=== PATIENT | female | born 1950 | race Hispanic/Latino ===

== ENCOUNTER → 2018-01-27 | Outpatient (CLI) | payer OTHER ==
[~2018-01-27] MED LIST: ASPI-1197 PO; CLOP75TA32 PO; ESOM40CA PO; METH25VI67 IJ; METO50TA18 PO; RANO500T2 PO; TRAM50TA4 PO; VALS1TAB75 PO
== END | disposition home or self-care (01) ==
LOC: RAH 12:31
PROVIDERS: ATTEND Family Medicine
DX: Z12.31 Encounter for screening mammogram for malignant neoplasm of breast (principal)
CPT/HCPCS: 77067

== ENCOUNTER → 2018-07-17 | Outpatient (CLI) | payer OTHER ==
[~2018-07-17] VITALS: Ht 149.9 cm; Wt 51.7 kg
[~2018-07-17] MED LIST changes: +REGADENOSON 0.4 MG/5 ML PF SYG IVP SCH
== END | disposition home or self-care (01) ==
LOC: SHCH 08:07
PROVIDERS: ATTEND Internal Medicine Cardiovascular Disease
DX: I25.119 Atherosclerotic heart disease of native coronary artery with unspecified angina pectoris (principal); E78.5 Hyperlipidemia, unspecified
CPT/HCPCS: 78452; 93017; 93306; 96374; A9500 ×2; J2785

== ENCOUNTER 2018-08-07 05:30 | Observation (INO) | payer OTHER ==
[2018-08-05 10:25] VITALS: BP 110/57
[2018-08-05 10:28] LABS: BASOPHILS % (AUTO) 0.4 % (0.0-5.0); EOSINOPHILS % (AUTO) 1.2 % (0.0-8.0); HEMATOCRIT 35.8 % (36-48); LYMPHOCYTES % (AUTO) 42.5 % (21.0-51.0); MEAN CORPUSCULAR HEMOGLOBIN 31.5 pg (27.0-33.0); MEAN CORPUSCULAR HGB CONC 33.8 g/dL (32.0-36.0); MEAN CORPUSCULAR VOLUME 93.3 fL (79-99); MONOCYTES % (AUTO) 8.7 % (3.0-13.0); NEUTROPHILS % (AUTO) 47.2 % (40.0-77.0); PLATELET COUNT (AUTO) 274 K/uL (130-400); RED BLOOD CELL COUNT(AUTO) 3.84 MIL/uL (4.00-5.50); RED CELL DISTRIBUTION WIDTH 12.9 % (11.0-15.5); WHITE BLOOD COUNT (AUTO) 5.9 K/uL (4.8-10.8)
[2018-08-05 10:33] LABS: CREATININE 0.9 mg/dL (0.5-1.5); POTASSIUM 4.6 mmol/L (3.5-5.1)
[2018-08-05 10:43] LABS: INR 0.95 (0.85-1.15); PARTIAL THROMBOPLASTIN TIME 26.8 SEC (26.3-35.5)
[2018-08-05 10:47] LABS: APPEARANCE,URINE Clear (CLEAR); BILIRUBIN,URINE Negative (NEGATIVE); COLOR,URINE Yellow (YELLOW); GLUCOSE, URINE (UA) Negative (NEGATIVE); KETONES,URINE Negative (NEGATIVE); LEUKOCYTE ESTERASE ,URINE Moderate (NEGATIVE); NITRATE,URINE Negative (NEGATIVE); OCCULT BLOOD,URINE Negative (NEGATIVE); PROTEIN,URINE Negative (NEGATIVE)
[2018-08-05 11:08] LABS: BACTERIA,URINE Rare /HPF (None Seen); RBC,URINE 0-1 /HPF (0-1); SQUAMOUS EPITHELIAL CELL,UR Rare /HPF (0-2); YEAST,URINE BUDDING Few /HPF (None Seen)
[~2018-08-07] VITALS: Ht 152.4 cm; Wt 51.9 kg
[2018-08-07] VITALS (31 sets, daily range): BP systolic 104–155; BP diastolic 53–100
[~2018-08-07 05:30] MED LIST changes: +ATOR10TA69 PO; +LOSA1TAB42 PO; +METH2.5T6 PO; -METH25VI67 IJ; -REGADENOSON 0.4 MG/5 ML PF SYG IVP SCH; -VALS1TAB75 PO
[2018-08-07] MEDS ORDERED: SODIUM CHLORIDE 0.9% 1000ML 1,000 ML IV ONE (06:16)
[2018-08-07] MEDS ORDERED: NITR0.4T SL (06:59)
[2018-08-07] MEDS ORDERED: IOHEXOL-350 50ML VIAL IV ONE (07:57)
[2018-08-07] MEDS ORDERED: IOHEXOL 350 MG/ML 100ML INFUS..BTL IV ONE (07:57)
[2018-08-07] MEDS ORDERED: HEPARIN SODIUM 1000UNIT/ML 10ML VIAL ONE (07:57)
[2018-08-07] MEDS ORDERED: LIDOCAINE HCL 2% 20ML ONE (07:57)
[2018-08-07] MEDS ORDERED: IOHEXOL-350 75 ML VIAL IV ONE ×2 (08:44→09:12)
[2018-08-07] MEDS ORDERED: ASPIRIN 325MG EC TAB 325 MG TABLET.DR PO ONE (09:33)
[2018-08-07] MEDS ORDERED: CLOPIDOGREL BISULFATE 300 MG TAB ONE (09:33)
[2018-08-07] MEDS ORDERED: NITROGLYCERIN 4.1 GM SPRAY TL ONE (09:34)
[2018-08-07] MEDS ORDERED: ONDANSETRON HCL 4 MG/2 ML VIAL IVP PRN (10:00)
[2018-08-07] MEDS ORDERED: TRAMADOL HCL 50 MG TABLET PO PRN (10:00)
[2018-08-07] MEDS ORDERED: NITROGLYCERIN 0.4 MG SL TAB SL PRN (10:00)
[2018-08-07] MEDS ORDERED: ONDANSETRON HCL 4 MG/2 ML VIAL IVP SCH (10:00)
[2018-08-07] MEDS ORDERED: MORPHINE SULFATE 5 MG/ML VIAL IVP SCH (10:00)
[2018-08-07] MEDS: PANTOPRAZOLE SODIUM 40 MG TABLET.DR PO SCH (11:49)
[2018-08-07] MEDS: ACETAMINOPHEN 325 MG TAB PO PRN (15:37)
[2018-08-07] MEDS ORDERED: MORPHINE SULFATE 5 MG/ML VIAL ONE (16:38)
[2018-08-07] MEDS ORDERED: HYDROCHLOROTHIAZIDE 25 MG TABLET PO SCH (21:00)
[2018-08-07] MEDS ORDERED: ATORVASTATIN CALCIUM 10 MG TABLET PO SCH (21:00)
[2018-08-07] MEDS ORDERED: LOSARTAN 100 MG TABLET PO SCH (21:00)
[2018-08-07] MEDS ORDERED: ASPIRIN 81MG TAB.CHEW PO SCH (21:00)
[2018-08-07] MEDS: METOPROLOL TARTRATE 50 MG TAB PO SCH (21:41)
[2018-08-07] MEDS: RANOLAZINE 500 MG TAB.SR.12H PO SCH (21:42)
[2018-08-08 03:46] LABS: HEMATOCRIT 32.4 % (36-48); MEAN CORPUSCULAR HEMOGLOBIN 31.9 pg (27.0-33.0); MEAN CORPUSCULAR HGB CONC 34.7 g/dL (32.0-36.0); MEAN CORPUSCULAR VOLUME 92.1 fL (79-99); NUCLEATED RED BLOOD CELLS 0.1 % (0.0-0.19); PLATELET COUNT (AUTO) 256 K/uL (130-400); RED BLOOD CELL COUNT(AUTO) 3.52 MIL/uL (4.00-5.50); RED CELL DISTRIBUTION WIDTH 13.7 % (11.0-15.5); WHITE BLOOD COUNT (AUTO) 7.6 K/uL (4.8-10.8)
[2018-08-08 03:57] LABS: CREATININE 1.1 mg/dL (0.5-1.5); POTASSIUM 3.8 mmol/L (3.5-5.1)
[2018-08-08 04:00] VITALS: BP 112/53
[2018-08-08 07:51] VITALS: BP 112/58
[2018-08-08] MEDS: METOPROLOL TARTRATE 50 MG TAB PO SCH (08:42)
[2018-08-08] MEDS: RANOLAZINE 500 MG TAB.SR.12H PO SCH (08:42)
[2018-08-08] MEDS: PANTOPRAZOLE SODIUM 40 MG TABLET.DR PO SCH (08:42)
[2018-08-08] MEDS ORDERED: CLOPIDOGREL BISULFATE 75 MG TAB PO SCH (09:00)
[2018-08-08 11:07] VITALS: BP 106/64
[2018-08-08] MEDS: ACETAMINOPHEN 325 MG TAB PO PRN (11:16)
[2018-08-13] MEDS ORDERED: METHOTREXATE SODIUM 2.5 MG TABLET PO SCH (09:00)
== END 2018-08-08 13:00 | disposition home or self-care (01) ==
LOC: DAH 05:30 → DAHIP 05:31 → 2AH 10:42
PROVIDERS: ADMIT Internal Medicine Pulmonary Disease; ATTEND Internal Medicine Pulmonary Disease
DX: I25.119 Atherosclerotic heart disease of native coronary artery with unspecified angina pectoris (principal); E78.5 Hyperlipidemia, unspecified; I10 Essential (primary) hypertension; M06.9 Rheumatoid arthritis, unspecified; Z82.49 Family history of ischemic heart disease and other diseases of the circulatory system; Z96.649 Presence of unspecified artificial hip joint; Z79.899 Other long term (current) drug therapy; Z95.5 Presence of coronary angioplasty implant and graft; Z79.01 Long term (current) use of anticoagulants
CPT/HCPCS: 36415 ×3; 71045; 80048 ×2; 81001; 85025; 85027; 85610; 85730 ×3; 93005; 93458; 96374; 96375; C1769; C1874; C1887 ×6; C1894; C9600; G0378 ×31; J1644 ×3; J2270; J2405; J3490; J7030; Q9965; Q9967 ×4

== ENCOUNTER 2019-06-14 22:39 | Observation (INO) | payer OTHER ==
[~2019-06-14] VITALS: Ht 149.9 cm; Wt 51.2 kg
[~2019-06-14 22:39] MED LIST changes: +NITR0.4T SL
[2019-06-14 23:13] LABS: BASOPHILS % (AUTO) 0.7 % (0.0-5.0); EOSINOPHILS % (AUTO) 0.9 % (0.0-8.0); HEMATOCRIT 32.5 % (36-48); LYMPHOCYTES % (AUTO) 43.8 % (21.0-51.0); MEAN CORPUSCULAR HEMOGLOBIN 33.3 pg (27.0-33.0); MEAN CORPUSCULAR HGB CONC 35.2 g/dL (32.0-36.0); MEAN CORPUSCULAR VOLUME 94.6 fL (79-99); MONOCYTES % (AUTO) 10.2 % (3.0-13.0); NEUTROPHILS % (AUTO) 44.4 % (40.0-77.0); PLATELET COUNT (AUTO) 250 K/uL (130-400); RED BLOOD CELL COUNT(AUTO) 3.43 MIL/uL (4.00-5.50); RED CELL DISTRIBUTION WIDTH 12.3 % (11.0-15.5); WHITE BLOOD COUNT (AUTO) 7.2 K/uL (4.8-10.8)
[2019-06-14] MEDS ORDERED: MAGNESIUM HYDROXIDE 30 ML/UDCUP ONE (23:19)
[2019-06-14] MEDS ORDERED: LIDOCAINE HCL 2% VISCOUS 15 ML UDCUP ONE (23:19)
[2019-06-14 23:23] LABS: CREATININE 0.9 mg/dL (0.5-1.5); POTASSIUM 3.7 mmol/L (3.5-5.1)
[2019-06-14 23:26] LABS: INR 0.93 (0.85-1.15); PARTIAL THROMBOPLASTIN TIME 25.2 SEC (26.3-35.5); PROTHROMBIN TIME 9.8 SEC (9.6-11.6)
[2019-06-14 23:28] LABS: ALBUMIN 3.7 g/dL (3.5-5.0); BILIRUBIN,TOTAL 0.3 mg/dL (0.2-1.0)
[2019-06-15] MEDS ORDERED: LEVOFLOXACIN 750 MG/D5W 150 ML 150 ML ONE (00:53)
[2019-06-15] MEDS ORDERED: ASPIRIN 325 MG TABLET ONE (00:59)
[2019-06-15] MEDS ORDERED: NITROGLYCERIN 1GM/1 INCH PACKET TD ONE (00:59)
[2019-06-15] MEDS ORDERED: CEFTRIAXONE SODIUM 1 GM ONE (01:34)
[2019-06-15] MEDS ORDERED: ONDANSETRON HCL 4 MG/2 ML VIAL ONE (01:35)
[2019-06-15] MEDS ORDERED: LACTATED RINGERS 1000ML 1,000 ML IV ONE (02:00)
[2019-06-15] MEDS: LACTATED RINGERS 1000ML 1,000 ML IV SCH ×3 (02:00→21:26)
[2019-06-15] MEDS ORDERED: PANTOPRAZOLE SODIUM 40 MG TABLET.DR PO ONE (02:00)
[2019-06-15] MEDS ORDERED: ACETAMINOPHEN 325 MG TAB PO PRN (02:15)
[2019-06-15] MEDS ORDERED: ONDANSETRON HCL 4 MG/2 ML VIAL IVP PRN (02:15)
[2019-06-15] MEDS ORDERED: IPRATROPIUM/ALBUTEROL SULFATE 3 ML SOLUTION IH ONE ×2 (05:07→10:34)
[2019-06-15] MEDS: IPRATROPIUM/ALBUTEROL SULFATE 3 ML SOLUTION IH SCH ×5 (05:08→22:00)
[2019-06-15 06:11] LABS: BASOPHILS % (AUTO) 0.4 % (0.0-5.0); EOSINOPHILS % (AUTO) 0.1 % (0.0-8.0); HEMATOCRIT 29.8 % (36-48); LYMPHOCYTES % (AUTO) 25.3 % (21.0-51.0); MEAN CORPUSCULAR HEMOGLOBIN 32.4 pg (27.0-33.0); MEAN CORPUSCULAR HGB CONC 34.3 g/dL (32.0-36.0); MEAN CORPUSCULAR VOLUME 94.5 fL (79-99); MONOCYTES % (AUTO) 4.9 % (3.0-13.0); NEUTROPHILS % (AUTO) 69.3 % (40.0-77.0); PLATELET COUNT (AUTO) 212 K/uL (130-400); RED BLOOD CELL COUNT(AUTO) 3.16 MIL/uL (4.00-5.50); RED CELL DISTRIBUTION WIDTH 12.2 % (11.0-15.5); WHITE BLOOD COUNT (AUTO) 7.5 K/uL (4.8-10.8)
[2019-06-15 06:24] LABS: CREATININE 0.9 mg/dL (0.5-1.5); POTASSIUM 4.1 mmol/L (3.5-5.1)
[2019-06-15] MEDS: PANTOPRAZOLE SODIUM 40 MG TABLET.DR PO SCH (09:00)
--- NOTE | 2019-06-15 11:08 | NUR ---
NITHYA NELSON met with pt who states her son De Riojas [phone] and her brother are currently staying with her. Daughter Smitha Mercer [phone] is also an ER contact. Pt reports she is independent of all ADLS, no DME or in home care services. Pt denies d needs and judd is home with family Addendum: 06/15/19 at 1110 by MICHAEL PEDRAZA Amended: Links added.
[2019-06-15 12:38] VITALS: BP 139/63
[2019-06-15 16:00] VITALS: BP 103/47
[2019-06-15 19:30] VITALS: BP 144/76
--- NOTE | 2019-06-15 21:30 | NUR ---
ASSESS SHIFT ASSESSMENT DONE, PLEASE REFER TO CHARTYovani BULLARD NEW IVF OF LR MAINTAINED AT REGULATION OF 100CC/HR. PT ON HOLTER MONITOR WELL ON TELE MONITOR. UPDATED HOME MED LIST IN THE COMPUTER. PT CLAIMS SHE DOES NOT NEED THE BREATHING TREATMENT SHE IS NOT COUGHING AND IS NOT SOB NOR WHEEZING. ASSURED PT TO REFER TO . Addendum: 06/16/19 at 0120 by SHANTELL HONG RN RN Amended: Links added.
--- NOTE | 2019-06-15 22:15 | NUR ---
PAGED HCANDAN ACOSTA NP FOR BENCHMARK, PAGED VIA ANSWERING SERVICE. RN NEUROLOGY CALLED BACK AND REFERRED PT'S HOME MEDS AND DUONEB ORDERS. RN NEUROLOGY GAVE NEW MED ORDERS, PLEASE REFER TO CPOE.
[2019-06-15] MEDS ORDERED: IPRATROPIUM/ALBUTEROL SULFATE 3 ML SOLUTION IH PRN (22:30)
[2019-06-15] MEDS ORDERED: NITROGLYCERIN 0.4 MG SL TAB SL PRN (22:30)
[2019-06-15] MEDS ORDERED: TRAMADOL HCL 50 MG TABLET PO PRN (22:30)
[2019-06-15 23:25] VITALS: BP 138/66
[2019-06-16] MEDS ORDERED: CEFTRIAXONE SODIUM 1 GM IVP SCH (01:00)
[2019-06-16] MEDS ORDERED: LEVOFLOXACIN 750 MG/D5W 150 ML 150 ML IV SCH (02:00)
--- NOTE | 2019-06-16 02:00 | NUR ---
ROUNDS PT RESTING WELL, FAIRLY ASLEEP. NO DISTRESS NOTED. KEPT RESTED AND COMFORTABLE. CALL LIGHT WITHIN REACH.
[2019-06-16 03:30] VITALS: BP 113/53
[2019-06-16 05:16] LABS: HEMATOCRIT 28.9 % (36-48); MEAN CORPUSCULAR HEMOGLOBIN 32.9 pg (27.0-33.0); MEAN CORPUSCULAR HGB CONC 34.3 g/dL (32.0-36.0); MEAN CORPUSCULAR VOLUME 95.9 fL (79-99); PLATELET COUNT (AUTO) 209 K/uL (130-400); RED BLOOD CELL COUNT(AUTO) 3.01 MIL/uL (4.00-5.50); RED CELL DISTRIBUTION WIDTH 12.5 % (11.0-15.5); WHITE BLOOD COUNT (AUTO) 6.9 K/uL (4.8-10.8)
--- NOTE | 2019-06-16 05:25 | NUR ---
ROUNDS PT STILL FAIRLY ASLEEP. NO DISTRESS NOTED. KEPT RESTED AND COMFORTABLE. FOR MORE CARE.
[2019-06-16 05:32] LABS: CREATININE 0.9 mg/dL (0.5-1.5); POTASSIUM 4.1 mmol/L (3.5-5.1)
[2019-06-16 07:00] VITALS: BP 136/57
[2019-06-16] MEDS: LACTATED RINGERS 1000ML 1,000 ML IV SCH (08:00)
[2019-06-16] MEDS: PANTOPRAZOLE SODIUM 40 MG TABLET.DR PO SCH (08:55)
[2019-06-16] MEDS ORDERED: HYDROCHLOROTHIAZIDE 25 MG TABLET PO SCH ×2 (09:00→21:00)
[2019-06-16] MEDS ORDERED: METOPROLOL TARTRATE 50 MG TAB PO SCH (09:00)
[2019-06-16] MEDS ORDERED: LOSARTAN 100 MG TABLET PO SCH (09:00)
[2019-06-16] MEDS ORDERED: RANOLAZINE 500 MG TAB.SR.12H PO SCH (09:00)
[2019-06-16 11:00] VITALS: BP 102/47
[2019-06-16] MEDS ORDERED: LEVO500T2 PO (14:26)
--- NOTE | 2019-06-16 19:51 | NUR ---
PT D/C UPDATE Pt d/c home safely, pt admitted with community acquired pneumonia, CXR neg, no fever or white count, pt d/c on levofloxacin 500mg po for 5 days, medication called in to pt preferred pharmacy [facility] on [address], pt notified of the medication that has been called in, pt expressed and verbalized understanding of d/c instruction, all questions and concerns addressed.
[2019-06-16] MEDS ORDERED: CLOPIDOGREL BISULFATE 75 MG TAB PO SCH (21:00)
[2019-06-16] MEDS ORDERED: ATORVASTATIN CALCIUM 10 MG TABLET PO SCH (21:00)
[2019-06-16] MEDS ORDERED: ASPIRIN 81MG TAB.CHEW PO SCH (21:00)
[2019-06-17] MEDS ORDERED: LEVOFLOXACIN 750 MG/D5W 150 ML 150 ML IV SCH (06:00)
[2019-06-17] MEDS ORDERED: METHOTREXATE SODIUM 2.5 MG TABLET PO SCH (09:00)
== END 2019-06-16 15:10 | disposition home or self-care (01) ==
LOC: EDH 22:39 → EDHIP 06-15 01:26 → 3AH 06-15 12:01
PROVIDERS: ADMIT Internal Medicine Critical Care Medicine; ATTEND Internal Medicine Critical Care Medicine
DX: J18.9 Pneumonia, unspecified organism (principal); I10 Essential (primary) hypertension; E11.51 Type 2 diabetes mellitus with diabetic peripheral angiopathy without gangrene; R11.2 Nausea with vomiting, unspecified; E78.5 Hyperlipidemia, unspecified; M19.90 Unspecified osteoarthritis, unspecified site; I25.10 Atherosclerotic heart disease of native coronary artery without angina pectoris; Z79.02 Long term (current) use of antithrombotics/antiplatelets; Z79.899 Other long term (current) drug therapy; Z79.01 Long term (current) use of anticoagulants
CPT/HCPCS: 36415 ×3; 71045 ×3; 80048 ×2; 80053; 82550; 82948; 83605; 83880; 84484; 85025 ×2; 85027; 85610; 85730; 87040 ×2; 93005 ×2; 94640 ×5; 94664; 96361 ×2; 96374; 99284; G0378 ×37; J0696 ×2; J1956; J2405; J7120 ×3

== ENCOUNTER 2019-07-21 17:46 | Emergency (ER) | payer OTHER ==
[~2019-07-21 17:46] MED LIST changes: +LEVO500T2 PO
[2019-07-21] MEDS ORDERED: ONDANSETRON HCL 4 MG/2 ML VIAL ONE (18:18)
[2019-07-21] MEDS ORDERED: MECLIZINE HCL 25 MG TABLET ONE (18:18)
[2019-07-21] MEDS ORDERED: SODIUM CHLORIDE 0.9% 500ML 500 ML IV ONE (18:19)
[2019-07-21 18:34] LABS: BASOPHILS % (AUTO) 0.2 % (0.0-5.0); EOSINOPHILS % (AUTO) 0.4 % (0.0-8.0); HEMATOCRIT 31.7 % (36-48); LYMPHOCYTES % (AUTO) 17.7 % (21.0-51.0); MEAN CORPUSCULAR HEMOGLOBIN 32.8 pg (27.0-33.0); MEAN CORPUSCULAR HGB CONC 34.4 g/dL (32.0-36.0); MEAN CORPUSCULAR VOLUME 95.6 fL (79-99); MONOCYTES % (AUTO) 5.4 % (3.0-13.0); NEUTROPHILS % (AUTO) 76.3 % (40.0-77.0); PLATELET COUNT (AUTO) 187 K/uL (130-400); RED BLOOD CELL COUNT(AUTO) 3.32 MIL/uL (4.00-5.50); RED CELL DISTRIBUTION WIDTH 12.5 % (11.0-15.5); WHITE BLOOD COUNT (AUTO) 8.6 K/uL (4.8-10.8)
[2019-07-21 18:43] LABS: CREATININE 0.9 mg/dL (0.5-1.5); POTASSIUM 4.3 mmol/L (3.5-5.1)
[2019-07-21 18:45] LABS: INR 1.01 (0.85-1.15); PARTIAL THROMBOPLASTIN TIME 23.8 SEC (26.3-35.5); PROTHROMBIN TIME 10.6 SEC (9.6-11.6)
[2019-07-21 18:48] LABS: ALBUMIN 3.3 g/dL (3.5-5.0); BILIRUBIN,TOTAL 0.5 mg/dL (0.2-1.0); TOTAL PROTEIN, SERUM 6.5 g/dL (6.0-8.3)
== END 2019-07-21 19:31 | disposition home or self-care (01) ==
LOC: EDH 17:46
DX: R11.2 Nausea with vomiting, unspecified (principal); R42 Dizziness and giddiness; I11.9 Hypertensive heart disease without heart failure; Z96.642 Presence of left artificial hip joint
CPT/HCPCS: 36415; 71045; 80053; 82550; 83690; 84484; 85025; 85610; 85730; 93005; 96374; 99285; J2405; J7040

== ENCOUNTER 2019-11-10 08:21 | Day surgery (SDC) | payer OTHER ==
[~2019-11-10] VITALS: Ht 149.9 cm; Wt 49.4 kg
[~2019-11-10 08:21] MED LIST changes: +SODIUM CHLORIDE 0.9% 1000ML 1,000 ML IV ONE
[2019-11-10 09:03] VITALS: BP 131/67
[2019-11-10] MEDS ORDERED: PROPOFOL 10 MG/ML 20ML VIAL IV ONE (10:05)
[2019-11-10 10:20] VITALS: BP 109/55
[2019-11-10 10:25] VITALS: BP 110/55
[2019-11-10 10:30] VITALS: BP 110/55
[2019-11-10 10:35] VITALS: BP 120/63
[2019-11-10 10:40] VITALS: BP 118/68
== END 2019-11-10 11:11 | disposition home or self-care (01) ==
LOC: DAH 08:21 → ENDO 08:21
PROVIDERS: ATTEND Internal Medicine
DX: K92.1 Melena (principal); K64.0 First degree hemorrhoids; K57.30 Diverticulosis of large intestine without perforation or abscess without bleeding; I10 Essential (primary) hypertension; K21.9 Gastro-esophageal reflux disease without esophagitis; I25.2 Old myocardial infarction; I25.10 Atherosclerotic heart disease of native coronary artery without angina pectoris; E78.5 Hyperlipidemia, unspecified; M81.0 Age-related osteoporosis without current pathological fracture; M06.9 Rheumatoid arthritis, unspecified; Z79.82 Long term (current) use of aspirin; Z79.899 Other long term (current) drug therapy; Z96.642 Presence of left artificial hip joint; Z98.890 Other specified postprocedural states; Z87.891 Personal history of nicotine dependence; Z83.3 Family history of diabetes mellitus; Z82.5 Family history of asthma and other chronic lower respiratory diseases
CPT/HCPCS: 45378; A4215; A4221; A4222; A4223; A4606; A4615; A4663; J2704; J7030

== ENCOUNTER 2020-04-21 15:46 | Emergency (ER) | payer OTHER ==
[~2020-04-21 15:46] MED LIST changes: -LEVO500T2 PO; -SODIUM CHLORIDE 0.9% 1000ML 1,000 ML IV ONE
[2020-04-21 16:53] LABS: BASOPHILS % (AUTO) 0.2 % (0.0-5.0); EOSINOPHILS % (AUTO) 0.2 % (0.0-8.0); HEMATOCRIT 33.2 % (36-48); LYMPHOCYTES % (AUTO) 17.5 % (21.0-51.0); MEAN CORPUSCULAR HEMOGLOBIN 33.1 pg (27.0-33.0); MEAN CORPUSCULAR HGB CONC 33.4 g/dL (32.0-36.0); MEAN CORPUSCULAR VOLUME 99.1 fL (79-99); MONOCYTES % (AUTO) 6.4 % (3.0-13.0); NEUTROPHILS % (AUTO) 75.3 % (40.0-77.0); PLATELET COUNT (AUTO) 260 K/uL (130-400); RED BLOOD CELL COUNT(AUTO) 3.35 MIL/uL (4.00-5.50); RED CELL DISTRIBUTION WIDTH 11.8 % (11.0-15.5); WHITE BLOOD COUNT (AUTO) 8.5 K/uL (4.8-10.8)
[2020-04-21 17:05] LABS: INR 1.21 (0.85-1.15); PARTIAL THROMBOPLASTIN TIME 28.7 SEC (26.3-35.5)
[2020-04-21 17:38] LABS: CREATININE 0.7 mg/dL (0.5-1.5); POTASSIUM 4.4 mmol/L (3.5-5.1)
[2020-04-21 17:44] LABS: ALBUMIN 3.4 g/dL (3.5-5.0); BILIRUBIN,TOTAL 0.5 mg/dL (0.2-1.0); TOTAL PROTEIN, SERUM 6.9 g/dL (6.0-8.3)
[2020-04-21 21:05] LABS: APPEARANCE,URINE Cloudy (CLEAR); BILIRUBIN,URINE Moderate (NEGATIVE); COLOR,URINE Orange (YELLOW); GLUCOSE, URINE (UA) Negative (NEGATIVE); KETONES,URINE Negative (NEGATIVE); LEUKOCYTE ESTERASE ,URINE Moderate (NEGATIVE); NITRATE,URINE Positive (NEGATIVE); OCCULT BLOOD,URINE Negative (NEGATIVE); PROTEIN,URINE POS 1+ mg/dL (NEGATIVE)
[2020-04-21 21:18] LABS: RBC,URINE 0-1 /HPF (0-1)
[2020-04-21 21:19] LABS: BACTERIA,URINE Few /HPF (None Seen); SQUAMOUS EPITHELIAL CELL,UR Few /HPF (0-2)
[2020-04-21] MEDS ORDERED: CEPHALEXIN 500 MG CAPSULE ONE (22:24)
== END 2020-04-21 22:40 | disposition home or self-care (01) ==
LOC: EDH 15:46
DX: N39.0 Urinary tract infection, site not specified (principal); R42 Dizziness and giddiness; I10 Essential (primary) hypertension
CPT/HCPCS: 36415; 70450; 80053; 81001; 82550; 84484; 85025; 85610; 85730; 87077; 87088; 87186; 93005

== ENCOUNTER → 2020-05-06 | Outpatient (CLI) | payer OTHER | END | disposition home or self-care (01) | LOC: RAH 08:58 | PROVIDERS: ATTEND Family Medicine | DX: Z12.31 Encounter for screening mammogram for malignant neoplasm of breast (principal) | CPT/HCPCS: 77067 ==

== ENCOUNTER 2020-08-14 17:22 | Emergency (ER) | payer OTHER ==
[2020-08-14] MEDS ORDERED: ASPIRIN 325 MG TABLET ONE (18:12)
[2020-08-14 18:26] LABS: BASOPHILS % (AUTO) 0.2 % (0.0-5.0); EOSINOPHILS % (AUTO) 0.2 % (0.0-8.0); HEMATOCRIT 34.4 % (36-48); LYMPHOCYTES % (AUTO) 17.9 % (21.0-51.0); MEAN CORPUSCULAR HEMOGLOBIN 32.2 pg (27.0-33.0); MEAN CORPUSCULAR HGB CONC 33.4 g/dL (32.0-36.0); MEAN CORPUSCULAR VOLUME 96.4 fL (79-99); MONOCYTES % (AUTO) 4.5 % (3.0-13.0); NEUTROPHILS % (AUTO) 76.9 % (40.0-77.0); PLATELET COUNT (AUTO) 209 K/uL (130-400); RED BLOOD CELL COUNT(AUTO) 3.57 MIL/uL (4.00-5.50); RED CELL DISTRIBUTION WIDTH 11.7 % (11.0-15.5); WHITE BLOOD COUNT (AUTO) 8.8 K/uL (4.8-10.8)
[2020-08-14 18:35] LABS: CREATININE 1.3 mg/dL (0.5-1.5); POTASSIUM 4.5 mmol/L (3.5-5.1)
[2020-08-14 18:36] LABS: INR 0.97 (0.85-1.15); PARTIAL THROMBOPLASTIN TIME 23.6 SEC (26.3-35.5); PROTHROMBIN TIME 10.5 SEC (9.6-11.6)
[2020-08-14 18:40] LABS: ALBUMIN 3.5 g/dL (3.5-5.0); BILIRUBIN,TOTAL 0.5 mg/dL (0.2-1.0); TOTAL PROTEIN, SERUM 7.1 g/dL (6.0-8.3)
[2020-08-14 18:53] LABS: B-TYPE NATRIURETIC PEPTIDE 61 pg/mL (0-100)
[2020-08-14 21:30] LABS: APPEARANCE,URINE CLEAR (CLEAR); BILIRUBIN,URINE SMALL (NEGATIVE); GLUCOSE, URINE (UA) NEGATIVE (NEGATIVE); KETONES,URINE 5 mg/dL (NEGATIVE); LEUKOCYTE ESTERASE ,URINE TRACE (NEGATIVE); NITRATE,URINE POSITIVE (NEGATIVE); OCCULT BLOOD,URINE NEGATIVE (NEGATIVE); PH,URINE 5.5 (5.0-8.0); PROTEIN,URINE TRACE mg/dL (NEGATIVE)
[2020-08-14 21:33] LABS: COLOR,URINE AMBER (YELLOW)
[2020-08-14 21:47] LABS: BACTERIA,URINE Few /HPF (None Seen); MUCUS,URINE Few LPF (None Seen); SQUAMOUS EPITHELIAL CELL,UR Moderate /HPF (0-2)
[2020-08-14] MEDS ORDERED: ORPHENADRINE CITRATE 30 MG/ML ML ONE (22:30)
[2020-08-14] MEDS ORDERED: CEPHALEXIN 500 MG CAPSULE ONE (22:31)
[2020-08-14] MEDS ORDERED: LIDOCAINE 5% TOPICAL PATCH TP ONE (22:31)
== END 2020-08-14 22:42 | disposition home or self-care (01) ==
LOC: EDH 17:22
DX: N39.0 Urinary tract infection, site not specified (principal); R07.89 Other chest pain; R51.9 Headache, unspecified; M62.838 Other muscle spasm; I10 Essential (primary) hypertension; E78.00 Pure hypercholesterolemia, unspecified; M19.90 Unspecified osteoarthritis, unspecified site; Z87.891 Personal history of nicotine dependence; Z98.890 Other specified postprocedural states
CPT/HCPCS: 36415; 71045; 80053; 81001; 82550; 83880; 84484 ×2; 85025; 85610; 85730; 87077; 87088; 87186; 93005; 96374; 99285; J2360

== ENCOUNTER → 2020-12-06 | Outpatient (CLI) | payer OTHER | END | disposition home or self-care (01) | LOC: SHCH 13:08 | PROVIDERS: ATTEND Internal Medicine Cardiovascular Disease | DX: I25.119 Atherosclerotic heart disease of native coronary artery with unspecified angina pectoris (principal); I73.9 Peripheral vascular disease, unspecified | CPT/HCPCS: 93306; 93356; 93925 ==

== ENCOUNTER 2022-02-14 00:07 | Emergency (ER) | payer OTHER ==
[~2022-02-14] VITALS: Ht 149.9 cm; Wt 51.3 kg
[2022-02-14 00:46] LABS: APPEARANCE,URINE Clear (CLEAR); BILIRUBIN,URINE Negative (NEGATIVE); COLOR,URINE Yellow (YELLOW); GLUCOSE, URINE (UA) Negative (NEGATIVE); KETONES,URINE Negative (NEGATIVE); LEUKOCYTE ESTERASE ,URINE Moderate (NEGATIVE); NITRATE,URINE Negative (NEGATIVE); OCCULT BLOOD,URINE Trace (NEGATIVE); PROTEIN,URINE Negative (NEGATIVE); UROBILINOGEN,URINE 0.2 mg/dL (0.2-1.0)
[2022-02-14 00:58] LABS: RBC,URINE 0-1 /HPF (0-1)
[2022-02-14 00:59] LABS: SQUAMOUS EPITHELIAL CELL,UR Few /HPF (0-2)
[2022-02-14 01:00] LABS: BACTERIA,URINE None Seen /HPF (None Seen)
[2022-02-14] MEDS ORDERED: CLONIDINE HCL 0.2 MG TABLET PO ONE (01:00)
[2022-02-14 01:38] LABS: BASOPHILS % (AUTO) 0.3 % (0.0-5.0); EOSINOPHILS % (AUTO) 1.1 % (0.0-8.0); HEMATOCRIT 35.2 % (36-48); LYMPHOCYTES % (AUTO) 37.2 % (21.0-51.0); MEAN CORPUSCULAR HEMOGLOBIN 31.9 pg (27.0-33.0); MEAN CORPUSCULAR HGB CONC 32.7 g/dL (32.0-36.0); MEAN CORPUSCULAR VOLUME 97.8 fL (79-99); MONOCYTES % (AUTO) 6.6 % (3.0-13.0); NEUTROPHILS % (AUTO) 54.5 % (40.0-77.0); PLATELET COUNT (AUTO) 238 K/uL (130-400); WHITE BLOOD COUNT (AUTO) 7.3 K/uL (4.8-10.8)
[2022-02-14 01:49] LABS: CREATININE 0.8 mg/dL (0.5-1.5)
[2022-02-14 01:53] LABS: ALBUMIN 3.7 g/dL (3.5-5.0); BILIRUBIN,TOTAL 0.5 mg/dL (0.2-1.0); TOTAL PROTEIN, SERUM 6.8 g/dL (6.0-8.3)
[2022-02-14] MEDS ORDERED: LABETALOL 20MG SYG IV ONE ×2 (02:22→02:30)
[2022-02-14] MEDS ORDERED: KCL 20 MEQ ERTAB PO ONE (02:41)
[2022-02-14 03:04] VITALS: BP 160/70
== END 2022-02-14 03:16 | disposition home or self-care (01) ==
LOC: EDH 00:07
DX: I16.0 Hypertensive urgency (principal); E78.00 Pure hypercholesterolemia, unspecified; Z79.82 Long term (current) use of aspirin; Z79.899 Other long term (current) drug therapy
CPT/HCPCS: 36415; 70450; 80053; 81001; 84484; 85025; 87088; 93005; 96374

== ENCOUNTER 2022-07-10 16:03 | Emergency (ER) | payer OTHER ==
[~2022-07-10] VITALS: Ht 149.9 cm; Wt 48.1 kg
[2022-07-10 16:40] LABS: BASOPHILS % (AUTO) 0.4 % (0.0-5.0); EOSINOPHILS % (AUTO) 0.7 % (0.0-8.0); LYMPHOCYTES % (AUTO) 47.1 % (21.0-51.0); MEAN CORPUSCULAR HEMOGLOBIN 31.7 pg (27.0-33.0); MEAN CORPUSCULAR HGB CONC 33.4 g/dL (32.0-36.0); MEAN CORPUSCULAR VOLUME 94.9 fL (79-99); MONOCYTES % (AUTO) 8.7 % (3.0-13.0); PLATELET COUNT (AUTO) 237 K/uL (130-400); RED BLOOD CELL COUNT(AUTO) 3.69 MIL/uL (4.00-5.50); RED CELL DISTRIBUTION WIDTH 12.2 % (11.0-15.5)
[2022-07-10 16:41] LABS: APPEARANCE,URINE CLEAR (CLEAR); BILIRUBIN,URINE NEGATIVE (NEGATIVE); COLOR,URINE LIGHT-YELLOW (YELLOW); GLUCOSE, URINE (UA) NEGATIVE (NEGATIVE); KETONES,URINE NEGATIVE (NEGATIVE); LEUKOCYTE ESTERASE ,URINE 25 Leu/uL (NEGATIVE); NITRATE,URINE NEGATIVE (NEGATIVE); OCCULT BLOOD,URINE NEGATIVE (NEGATIVE); PROTEIN,URINE NEGATIVE (NEGATIVE); UROBILINOGEN,URINE 0.2 mg/dL (0.2-1.0)
[2022-07-10 16:46] LABS: BACTERIA,URINE RARE /HPF (None Seen); SQUAMOUS EPITHELIAL CELL,UR RARE /HPF (0-2)
[2022-07-10 16:49] LABS: CREATININE 1.1 mg/dL (0.5-1.5)
[2022-07-10 16:53] LABS: ALBUMIN 3.5 g/dL (3.5-5.0); TOTAL PROTEIN, SERUM 7.3 g/dL (6.0-8.3)
[2022-07-10] MEDS ORDERED: NIFEDIPINE 10 MG CAP ONE (17:19)
[2022-07-10] MEDS ORDERED: NIFEDIPINE 10 MG CAP PO ONE (17:30)
[2022-07-10] MEDS ORDERED: KETOROLAC 15MG/ML VIAL (15MG/ML) IV ONE (18:00)
[2022-07-10] MEDS ORDERED: SOLU-MEDROL 125MG VIAL IVP ONE (18:00)
[2022-07-10] MEDS ORDERED: HYDR-3420 PO (18:00)
[2022-07-10 18:08] VITALS: BP 152/72
== END 2022-07-10 18:27 | disposition home or self-care (01) ==
LOC: EDH 16:03
DX: I16.0 Hypertensive urgency (principal); M19.90 Unspecified osteoarthritis, unspecified site; E78.00 Pure hypercholesterolemia, unspecified; Z79.82 Long term (current) use of aspirin; Z79.899 Other long term (current) drug therapy; Z98.890 Other specified postprocedural states
CPT/HCPCS: 99284; 96374; 96375; 84484; 80053; 85025; 81001; 36415; 93005; J2930; J1885

== ENCOUNTER → 2022-11-27 | Outpatient (CLI) | payer OTHER ==
[~2022-11-27] MED LIST changes: +HYDR-3420 PO
[2022-11-27 16:27] LABS: BASOPHILS % (AUTO) 0.3 % (0.0-5.0); LYMPHOCYTES % (AUTO) 48.8 % (21.0-51.0); MEAN CORPUSCULAR HEMOGLOBIN 32.1 pg (27.0-33.0); MEAN CORPUSCULAR HGB CONC 33.1 g/dL (32.0-36.0); MONOCYTES % (AUTO) 8.9 % (3.0-13.0); NEUTROPHILS % (AUTO) 40.8 % (40.0-77.0); PLATELET COUNT (AUTO) 253 K/uL (130-400); RED BLOOD CELL COUNT(AUTO) 3.61 MIL/uL (4.00-5.50); RED CELL DISTRIBUTION WIDTH 12.8 % (11.0-15.5); WHITE BLOOD COUNT (AUTO) 5.8 K/uL (4.8-10.8)
[2022-11-27 16:41] LABS: INR 0.93 (0.85-1.15); PROTHROMBIN TIME 10.2 SEC (9.6-11.6)
[2022-11-27 16:42] LABS: PARTIAL THROMBOPLASTIN TIME 25.5 SEC (26.3-35.5)
[2022-11-27 16:43] LABS: CREATININE 0.9 mg/dL (0.5-1.5); POTASSIUM 4.2 mmol/L (3.5-5.1)
== END | disposition home or self-care (01) ==
LOC: LAB 13:11
PROVIDERS: ATTEND Internal Medicine Cardiovascular Disease
DX: I10 Essential (primary) hypertension (principal); I25.10 Atherosclerotic heart disease of native coronary artery without angina pectoris; E78.5 Hyperlipidemia, unspecified; Z79.01 Long term (current) use of anticoagulants
CPT/HCPCS: 36415; 80048; 85025; 85610; 85730

== ENCOUNTER → 2023-02-04 | Outpatient (CLI) | payer OTHER | END | disposition home or self-care (01) | LOC: SHCH 14:59 | PROVIDERS: ATTEND Internal Medicine Cardiovascular Disease | DX: I70.291 Other atherosclerosis of native arteries of extremities, right leg (principal); I70.202 Unspecified atherosclerosis of native arteries of extremities, left leg; I77.9 Disorder of arteries and arterioles, unspecified | CPT/HCPCS: 93925 ==

== ENCOUNTER → 2023-07-29 | Outpatient (CLI) | payer OTHER ==
[~2023-07-29] MED LIST changes: +REGADENOSON 0.4 MG/5 ML PF SYG IVP ONE
== END | disposition home or self-care (01) ==
LOC: SHCH 08:57
PROVIDERS: ATTEND Internal Medicine Cardiovascular Disease
DX: I21.9 Acute myocardial infarction, unspecified (principal); R94.39 Abnormal result of other cardiovascular function study; I25.42 Coronary artery dissection; R06.09 Other forms of dyspnea
CPT/HCPCS: 78452; 93017; J2785; A9500 ×2; 96374

== ENCOUNTER → 2023-08-29 | Outpatient (CLI) | payer OTHER ==
[~2023-08-29] MED LIST changes: -REGADENOSON 0.4 MG/5 ML PF SYG IVP ONE
== END | disposition home or self-care (01) ==
LOC: SHCH 10:42
PROVIDERS: ATTEND Internal Medicine Cardiovascular Disease
DX: I08.0 Rheumatic disorders of both mitral and aortic valves (principal); I21.9 Acute myocardial infarction, unspecified; I25.41 Coronary artery aneurysm; R07.9 Chest pain, unspecified; R06.00 Dyspnea, unspecified; R04.2 Hemoptysis
CPT/HCPCS: 93306

== ENCOUNTER → 2024-04-08 | Outpatient (CLI) | payer OTHER ==
[2024-04-08 12:38] LABS: ALBUMIN 3.2 g/dL (3.5-5.0); BILIRUBIN,TOTAL 0.5 mg/dL (0.2-1.0); CREATININE 0.9 mg/dL (0.5-1.0); TOTAL PROTEIN, SERUM 6.9 g/dL (6.0-8.3)
== END | disposition home or self-care (01) ==
LOC: LAB 04-07 09:42
PROVIDERS: ATTEND Physician Assistant
DX: I73.9 Peripheral vascular disease, unspecified (principal); E78.5 Hyperlipidemia, unspecified
CPT/HCPCS: 36415; 80053; 80061

== ENCOUNTER → 2024-12-15 | Outpatient (CLI) | payer OTHER ==
[~2024-12-15] MED LIST changes: +CEFD300C3 PO; -HYDR-3420 PO; -LOSA1TAB42 PO
== END | disposition home or self-care (01) ==
LOC: SHCH 11:34
PROVIDERS: ATTEND Internal Medicine Cardiovascular Disease
DX: I65.23 Occlusion and stenosis of bilateral carotid arteries (principal)
CPT/HCPCS: 93880

== ENCOUNTER 2025-01-03 03:43 | Emergency (ER) | payer OTHER ==
[~2025-01-03] VITALS: Ht 149.9 cm; Wt 46.7 kg
[2025-01-03 03:55] VITALS: TEMP 98.1
--- NOTE | 2025-01-03 04:16 | ERN ---
General Chief Complaint: Hematemesis/Vomiting Blood Stated Complaint: COUGHING BLOOD Time Seen by MD: 03:55 History of Present Illness Initial Comments Patient is a 74-year-old female with cardiovascular disease on blood thinners and a history of blood in her stools. She woke up and felt something in her throat and coughed it out of her mouth and it was fresh blood. She comes to the emergency room wondering what is going on. She said otherwise she feels absolutely fine. No coughing no sneezing no chest pain no shortness of breath. Allergies: Coded Allergies: No Known Drug Allergies (Verified Allergy, Unknown, 02/20/17) Home Meds Active Scripts Cefdinir (Cefdinir) 300 Mg Capsule, 1 CAP PO BID for 5 Days, #20 CAP 0 Refills Prov:RILEY BANKS 07/19/24 Reported Medications Nitroglycerin (Nitrostat) 0.4 Mg Tab.subl, 0.4 MG SL AD PRN for CHEST PAIN, TAB.SL 08/07/18 Atorvastatin Calcium (Atorvastatin Calcium) 10 Mg Tablet, 10 MG PO HS, TAB 08/05/18 Methotrexate Sodium (Methotrexate) 2.5 Mg Tablet, 4 TAB PO WEDNESDAYS, TAB 08/05/18 Esomeprazole Magnesium (Nexium) 40 Mg Capsule.dr, 40 MG PO DAILY, CAP 02/22/17 Ranolazine (RANEXA) 500 Mg Tab.er.12h, 500 MG PO BID, TAB 02/20/17 Clopidogrel Bisulfate (Clopidogrel) 75 Mg Tablet, 75 MG PO HS, TAB 02/20/17 Metoprolol Tartrate (Metoprolol Tartrate) 50 Mg Tablet, 50 MG PO BID, TAB 02/20/17 Tramadol Hcl (Tramadol HCl) 50 Mg Tablet, 50 MG PO Q8HPRN PRN for PAIN LEVEL 1 TO 5, TAB 02/20/17 Aspirin (Aspirin) 81 Mg Tab.chew, 81 MG PO HS, TAB.CHEW 02/20/17 Past Medical History Past Medical History: Heart Disease, Hypertension Past Surgical History: Other Surgical History Other: HEART STENT, ABD HERNIA, LT HIP REPLACEMENT Social History Social History: Negative, Lives with family, Other Female( History) History: Not Applicable ROS Dictation Review of systems is negative patient states she feels fine and there was nothing else going on she just wonders why she coughed up this blood. I asked specifically about change in mental status respiratory symptoms shortness of breath cough cold nausea vomiting diarrhea weakness and she said no to all of those. Physical Exam General Appearance: (+) no apparent distress Orientation: (+) alert, (+) oriented x 3 Head/Face Trauma: No Eye: bilateral eye normal inspection, bilateral eye PERRL, bilateral eye EOMI Ear, Nose, Throat: (+) hearing grossly normal, (+) moist mucous membraine, (+) normal pharynx Ear, Nose, Throat Comment No blood in the patient's pharynx. I did see of red-colored nostril hair in her right nares. Otherwise her bilateral nares were devoid of blood or any stigmata of bleeding. Neck: (+) normal inspection, (+) supple Respiratory: (+) chest non-tender, (+) lungs clear Heart: (+) regular, (+) no gallop Vascular: (+) no edema, (+) normal peripheral pulse Results Laboratory and Microbiology Lab and Micro Result Laboratory Tests Test 01/03/25 04:45 Hemoglobin 12.5 g/dL (12.0-16.0) Hematocrit 37.1 % (36-48) MDM Patient is on a blood thinner and she is going to have a colonoscopy in the next week or two because she has had bleeding in her stools. My suspicion is the patient had a nosebleed or possibly regurgitated some blood out of her stomach. I will do a quick H and H to make sure is she has a adequate blood in her veins I will send her home with some omeprazole, assuming her hemoglobin level is adequate. Patient's hemoglobin is 12 I will discharge her home. With the instructions for nasal washes. ED Course Orders Procedure Category Date Status Time Hemoglobin And LAB 01/03/25 Complete Hematocrit 04:16 Vital Signs Date Time Temp Pulse Resp B/P (MAP) Pulse Ox O2 Delivery O2 Flow Rate FiO2 01/03/25 05:04 71 16 137/78 98 Room Air* 0 21 01/03/25 03:55 98.1 78 16 135/74 99 Room Air* 0 21 01/03/25 03:44 97.2 68 20 149/62 100 Room Air DX & DISP Disposition: Discharge Departure Impression: Primary Impression: Hematemesis Additional Impression: Hematemesis of unknown cause Condition: Stable Referrals: MIKAYLA POND MD (PCP) TESS TAPIA MD Jan 03, 2025 04:16
[2025-01-03 05:04] VITALS: BP 137/78; PULSE 71; RESP 16; O2SAT 98
[2025-01-03 05:41] LABS: HEMATOCRIT 37.1 % (36-48)
== END 2025-01-03 06:00 | disposition home or self-care (01) ==
LOC: EDH 03:43
DX: K92.0 Hematemesis (principal); I10 Essential (primary) hypertension; Z79.01 Long term (current) use of anticoagulants; Z79.02 Long term (current) use of antithrombotics/antiplatelets; Z79.82 Long term (current) use of aspirin; Z79.899 Other long term (current) drug therapy; Z95.5 Presence of coronary angioplasty implant and graft
CPT/HCPCS: 36415; 85014; 85018; 99283

== ENCOUNTER → 2025-06-21 | Outpatient (CLI) | payer OTHER | END | disposition home or self-care (01) | LOC: RAH 13:45 | PROVIDERS: ATTEND Family Medicine | DX: Z12.31 Encounter for screening mammogram for malignant neoplasm of breast (principal) | CPT/HCPCS: 77067 ==